=== PATIENT | female | born 1955 | race Caucasian/White ===

== ENCOUNTER 2019-07-14 17:06 | Emergency (ER) | payer MEDICAID ==
[~2019-07-14] VITALS: Ht 165.1 cm; Wt 92.1 kg
[2019-07-14 17:08] VITALS: BP_SYST 142
--- NOTE | 2019-07-14 17:23 | NUR ---
Placed in room 04 . Placed on supervisor compounding and finishing, blood pressure machine and pulse oximeter. To gown for exam. Side rails up.
--- NOTE | 2019-07-14 17:26 | NUR ---
ER at bedside examining patient.
--- NOTE | 2019-07-14 17:30 | NUR ---
pt arrives from home with c/o intermittent CP. Pt reports not having any CP at the moment. No other complaints. Will continue to monitor.
[2019-07-14] MEDS ORDERED: LORazepam 1 MG TABLET PO ONE (17:45)
[2019-07-14 18:01] LABS: BASOPHILS % (AUTO) 0.5 % (0.0-2.0); EOSINOPHILS # (AUTO) 0.3 K/uL (0.0-0.4); EOSINOPHILS % (AUTO) 5.8 % (0.0-4.0); HEMATOCRIT 40.2 % (36-48); HEMOGLOBIN 13.3 g/dL (12.0-16.0); LYMPHOCYTES # (AUTO) 2.2 K/uL (1.0-5.5); LYMPHOCYTES % (AUTO) 40.8 % (20.5-51.5); MEAN CORPUSCULAR HEMOGLOBIN 28 pg (27-31); MEAN CORPUSCULAR HGB CONC 33 % (32-36); MEAN CORPUSCULAR VOLUME 84 fL (79.0-98.0); MONOCYTES # (AUTO) 0.4 K/uL (0.0-1.0); NEUTROPHILS # (AUTO) 2.5 K/uL (1.8-7.7); NEUTROPHILS % (AUTO) 44.9 % (40.0-70.0); PLATELET COUNT (AUTO) 308 K/uL (130-430); RED BLOOD CELL COUNT(AUTO) 4.77 MIL/uL (4.2-6.2); RED CELL DISTRIBUTION WIDTH 15.3 % (9.0-15.0); WHITE BLOOD COUNT (AUTO) 5.5 K/uL (4.8-10.8)
[2019-07-14 18:21] LABS: CALCIUM 9.5 mg/dL (8.4-11.0); CREATININE 0.52 mg/dL (0.55-1.30); POTASSIUM 3.9 mmol/L (3.5-5.1)
[2019-07-14 18:26] LABS: ALBUMIN 3.6 g/dL (3.4-4.8); TOTAL BILIRUBIN 0.3 mg/dL (0.0-1.0)
[2019-07-14 18:44] VITALS: BP_SYST 122
--- NOTE | 2019-07-14 18:55 | NUR ---
Patient given written and verbal discharge instructions and verbalizes understanding. ER MD discussed with patient the results and treatment provided. Patient in stable condition. ID arm band removed. IV catheter removed intact and dressing applied, no active bleeding. Rx of HCTZ, ativan given. Patient educated on pain management and to follow up with PMD. Patient was advised to keep a BP log for the next week with a regular check in the morning and afternoon. Patient was cautioned to stop checking her BP every time she is stressed out, patient agrees and follow with PCP. Pain Scale 0/10. Opportunity for questions provided and answered. Medication side effect fact sheet provided.
== END 2019-07-14 18:44 | disposition home or self-care (01) ==
LOC: SED 17:06
DX: R07.9 Chest pain, unspecified (principal); R53.1 Weakness; I10 Essential (primary) hypertension; R51 Headache
CPT/HCPCS: 36415; 71045; 80053; 82550-TC; 83880; 84484; 85025; 99284